=== PATIENT | female | born 1955 | race Caucasian/White ===

== ENCOUNTER 2017-03-18 22:08 | Emergency (ER) | payer MEDICARE | END 2017-03-18 22:58 | disposition left against medical advice (07) | LOC: ER 22:08 | DX: Z53.21 Procedure and treatment not carried out due to patient leaving prior to being seen by health care provider (principal) | CPT/HCPCS: 99211 ==

== ENCOUNTER 2017-03-20 17:06 | Emergency (ER) | payer MEDICARE, OTHER ==
[2017-03-20 17:45] LABS: BASO % 0.2 % (0.1-1.2); EOS # 0.4 10_X3_uL (0.0-0.4); EOS % 3.4 % (0.7-5.8); GRAN # 6.1 10_X3_uL (1.6-6.1); GRAN % 56.6 % (34.0-71.1); HEMATOCRIT 40.5 % (34-45); HEMOGLOBIN 14.3 g/dL (11.2-15.7); LYMPH # 3.6 10_X3_uL (1.2-3.7); LYMPH % 33.5 % (19.3-51.7); MEAN CORPUSCULAR HEMOGLOBIN 30.2 pg (27.0-33.0); MEAN CORPUSCULAR HGB CONC 35.3 g/dL (32.0-36.0); MEAN CORPUSCULAR VOLUME 85.4 fL (79-95); MEAN PLATELET VOLUME 11.3 fl (7.5-11.5); MONO # 0.7 10_X3_uL (0.2-0.9); MONO % 6.3 % (4.7-12.5); PLATELET COUNT 253 x10_3/uL (182-369); RED BLOOD COUNT 4.74 x10_6/uL (3.9-5.2); RED CELL DISTRIBUTION WIDTH 13.7 % (11.7-14.4); WHITE BLOOD COUNT 10.8 x10_3/uL (4.0-10.0)
[2017-03-20 18:00] LABS: ALBUMIN 4.1 gm/dL (3.4-5.0); BILIRUBIN,TOTAL 0.52 mg/dL (0.0-1.0); CREATININE 1.5 mg/dL (0.6-1.3); POTASSIUM 3.7 mmol/L (3.5-5.1); TOTAL PROTEIN 6.8 gm/dL (6.4-8.2)
[2017-03-20 18:07] LABS: URINE BILIRUBIN NEGATIVE (NEGATIVE); URINE BLOOD NEGATIVE (NEGATIVE); URINE GLUCOSE (UA) NORMAL (NORMAL); URINE KETONE NEGATIVE (NEGATIVE); URINE LEUKOCYTE ESTERASE NEGATIVE (NEGATIVE); URINE NITRATE NEGATIVE (NEGATIVE); URINE PROTEIN NEGATIVE (NEGATIVE); UROBILINOGEN NORMAL mg/dL (<1.0)
== END 2017-03-20 20:14 | disposition home or self-care (01) ==
LOC: ER 17:06
PROVIDERS: Emergency Medicine
DX: R11.2 Nausea with vomiting, unspecified (principal); R53.1 Weakness; R19.7 Diarrhea, unspecified; R42 Dizziness and giddiness; J44.9 Chronic obstructive pulmonary disease, unspecified; F17.210 Nicotine dependence, cigarettes, uncomplicated; Z90.710 Acquired absence of both cervix and uterus; Z79.899 Other long term (current) drug therapy; Z88.2 Allergy status to sulfonamides; Z88.8 Allergy status to other drugs, medicaments and biological substances
CPT/HCPCS: 36415; 80053; 81003; 82150; 83690; 85025; 93005; 96374; 99070; 99284; 99284-25; J8597